=== PATIENT | female | born 1985 | race Caucasian/White ===

== ENCOUNTER 2021-12-20 12:20 | Emergency (ER) | payer OTHER, SELFPAY ==
[2021-12-20 13:40] VITALS: BP 140/90; PULSE 96; RESP 19; TEMP 36.6; O2SAT 100; BMI 33.9
--- NOTE | 2021-12-20 14:10 | EXP.UTC ---
Discharge Plan Disposition Patient Disposition: Home, Self-Care Condition: Good Prescriptions Prescriptions: New cephalexin 500 mg capsule 500 mg PO QID Qty: 40 0RF mupirocin 2 % ointment 1 applic topical TID 10 Days Qty: 22 0RF No Action buprenorphine-naloxone 8-2 mg tablet, sublingual 1 ea SL DAILY Label Comments: DISSOLVE 1&1/2 TABLETS UNDER THE TONGUE DAILY Referrals Follow up/Referrals: Lisa Nicole PA [Primary Care Provider] - See instructions Activity Restrictions/Add. Instructions Additional Instructions/Restrictions: Take medication as prescribed Follow up with Family Doctor if no improvement or any worsening of symptoms Suck on sour candy or suckers may help with dry mouth Follow up immediately if any worsening of symptoms Clinical Impressions Clinical Impression: Bacterial skin infection Instructions Patient Instructions: DI for Parotitis-Adult, DI for Impetigo, Impetigo Discharge ED Provider: Zoraida Craig [facility] [place] HPI General Stated complaint: knot on Rt jaw, wound on forehead Mode of Arrival: Ambulatory Source of Information: Patient Limitations: No Limitations Time Seen by Provider: 12/20/21 14:10 Description of Symptoms (Recalled from Triage Doc. by RN): PATIENT C/O SPOT ON FOREHEAD AND KNOT IN JAW X 3 DAYS HEENT Symptoms (Recalled from RN notes): Yes Resp Symptoms (Recalled from RN notes): No Skin Symptoms (Recalled from RN notes): Yes MS Symptoms (Recalled from RN notes): No Functional Status (Recalled from RN notes): WNL History of Present Illness Provider Complaint: Patient state that she was in [place] on vacation and got sunburnt States that she went to rub her forehead and she had a sore raised area there with yellowish colored scabbing States that area is sore to the touch but hasnt got any bigger States that also she has a knot like area on her jaw just in front of her ear that is sore to the touch not sure if was a swollen lymph node or something else Related Data Home Medications Medication Instructions Recorded Confirmed buprenorphine 8 mg-naloxone 2 mg 1 ea sublingual DAILY ADDICTION 07/22/21 12/20/21 sublingual tablet Previous Rx's Medication Instructions Recorded cephalexin 500 mg capsule 500 mg PO QID #40 caps 12/20/21 mupirocin 2 % topical ointment 1 applic topical TID 10 days #22 12/20/21 grams Allergies Allergy/AdvReac Type Severity Reaction Status Date / Time No Known Allergies Allergy Verified 10/06/21 13:02 Worker's Comp Is this a Worker's Comp case?: No PFSH PFSH Medical History (Updated 12/20/21 @ 14:27 by Zoraida Craig APRN) Anxiety Migraine Surgical History (Updated 12/20/21 @ 14:02 by Katrin Guerrero, RN) History of tubal ligation Social History (Updated 12/20/21 @ 14:03 by Katrin Guerrero RN) Smoking Status: Never smoker alcohol intake: never current occupational status: employed Travel in the last 8 weeks: None ROS Obtained: Yes All systems reviewed & no additional complaints except as documented and Yes Systems reviewed as appropriate & no additional complaints except as documented Constitutional Constitutional: Reports system reviewed and no additional complaints, except as documented and Reports as per HPI ENT Ears, Nose, Mouth, and Throat: Reports system reviewed and no additional complaints, except as documented and Reports as per HPI Cardiovascular Cardiovascular: Reports system reviewed and no additional complaints, except as documented and Reports as per HPI Musculoskeletal Musculoskeletal: Reports system reviewed and no additional complaints, except as documented and Reports as per HPI Physical Exam General General appearance: alert and in no apparent distress Expanded Head Exam Head image: 1. raised area with honey crusted scabbing noted tender to touch Respiratory Respiratory exam: Present normal lung sounds bilaterally and respiratory distress Cardi
[2021-12-20 14:48] VITALS: BP 140/90; PULSE 96; RESP 19; TEMP 36.6; O2SAT 100
== END 2021-12-20 14:49 | disposition home or self-care (01) ==
PROVIDERS: Emergency Provider Nurse Practitioner; PCP Physician Assistant
DX: L01.00 Impetigo, unspecified (principal); B96.89 Other specified bacterial agents as the cause of diseases classified elsewhere
CPT/HCPCS: 99212; G0463

== ENCOUNTER 2023-12-03 09:12 | Outpatient (CLI) | payer OTHER, SELFPAY ==
[2023-12-03 09:55] LABS: Basophils % 0.5 % (0.1-2.0); Eosinophils # 0.2 K/mm3 (0.0-0.4); Eosinophils % 2.9 % (0.1-12.0); Hematocrit 37.6 % (37.0-47.0); Hemoglobin 11.5 g/dL (12.2-16.2); Lymphocytes # 1.8 K/mm3 (0.7-4.5); Lymphocytes % 30.5 % (10-50); Mean Corpuscular HGB Conc 30.7 g/dL (31.8-35.4); Mean Corpuscular Hemoglobin 26.3 pg (27.0-31.2); Mean Corpuscular Volume 85.9 fl (81-99); Mean Platelet Volume 8.5 fl (7.4-10.4); Monocytes # 0.4 K/mm3 (0.1-1.0); Neutrophils # 3.5 K/mm3 (1.8-7.8); Neutrophils % 60.1 % (37.0-80.0); Platelet Count 275 K/mm3 (142-424); Red Blood Count 4.37 M/mm3 (4.20-5.40); Red Cell Distribution Width 18.3 % (11.5-17.5); White Blood Count 5.8 K/mm3 (4.8-10.8)
[2023-12-03 10:00] LABS: Hemoglobin A1C 5.6 % (4.0-6.0)
[2023-12-03 10:08] LABS: Alanine Aminotransferase 22 U/L (12-78); Albumin/Globulin Ratio 1.3 (1.1-1.8); Alkaline Phosphatase 52 U/L (38-126); Anion Gap 6.8 mEq/L (5-15); Aspartate Amino Transferase 29 U/L (14-36); Bilirubin,Total 0.6 mg/dl (0.2-1.3); Blood Urea Nitrogen 8 mg/dl (7-17); Calcium 8.9 mg/dl (8.4-10.2); Carbon Dioxide 26 mmol/L (22.0-30.0); Chloride 106 mmol/L (98-107); Chol/HDL Ratio 2.8 (1-3.5); Cholesterol 173 mg/dl (140-200); Estimated Glomerular Filt Rate 81 ml/min (>60); GFR (African American) 98 ML/MIN (>60); Globulin 3.2 g/dL (1.3-3.2); Glucose 99 mg/dl (74-100); HDL Cholesterol 62 mg/dl (40-60); Potassium 3.8 mmoL/L (3.5-5.1); Sodium 135 mmol/L (136-145); Total Protein,Serum 7.2 g/dl (6.3-8.2); Triglycerides 89 mg/dl (30-150); VLDL Cholesterol 18 mg/dL (0-40)
[2023-12-03 10:20] LABS: Direct LDL Cholesterol 92.28 mg/dL (100-129)
[2023-12-03 10:27] LABS: Total Iron Binding Capacity 369 ug/dL (265-497)
[2023-12-03 10:38] LABS: Thyroid Stimulating Hormone 0.54 uIU/mL (0.465-4.68)
[2023-12-03 11:13] LABS: Vitamin B12 289 pg/mL (239-931)
[2023-12-03 11:45] LABS: Iron 47 ug/dL (37-170)
[2023-12-03 13:45] LABS: 25-OH Vitamin D, Total 31.2 ng/mL (30-100)
[2023-12-04 07:12] LABS: HCV Ab Non Reactive (Non Reactive)
[2023-12-04 08:17] LABS: FSH 4.3 mIU/mL (.)
[2023-12-04 11:44] LABS: HIV (1&2) Antibody Rapid NONREACTIVE (NONREACTIVE)
== END 2023-12-03 23:59 | disposition home or self-care (01) ==
LOC: LAB 09:13
PROVIDERS: PCP Student in an Organized Health Care Education/Training Program; Visit Provider Student in an Organized Health Care Education/Training Program
DX: Z13.21 Encounter for screening for nutritional disorder (principal); E66.9 Obesity, unspecified; R20.2 Paresthesia of skin; M79.601 Pain in right arm; M79.602 Pain in left arm; R53.83 Other fatigue; Z11.59 Encounter for screening for other viral diseases; Z11.4 Encounter for screening for human immunodeficiency virus [HIV]; Z13.1 Encounter for screening for diabetes mellitus; Z13.29 Encounter for screening for other suspected endocrine disorder; Z68.34 Body mass index [BMI] 34.0-34.9, adult
CPT/HCPCS: 36415; 80050; 80053; 80061; 82306; 82607; 82670; 83001; 83036; 83540; 83550; 84443; 85025; 86803; 87389